=== PATIENT | male | born 1970 | race African-American/Black ===

== ENCOUNTER 2018-03-25 01:02 | Emergency (ER) | payer BC ==
[~2018-03-25] VITALS: Ht 177.8 cm; Wt 89.8 kg
--- NOTE | ~2018-03-25 | EKG ---
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1970 Requested By: Charly Crespo Order Number: [id number] MD: Manuel Thomas Measurements Intervals [place] Rate: 70 P: 47 IN: 141 QRS: -3 QRSD: 86 T: -14 QT: 375 QTc: 405 Interpretive Statements Sinus rhythm Repolarization abnormality Nonspecific T abnormalities, inferior leads No previous ECG available for comparison Electronically Signed On 03-25-2018 8:55:54 [employer] by Manuel Thomas [email or web address] <ELECTRONICALLY SIGNED> By: Manuel Thomas MD, [facility] 03/25/18 [id number] Manuel Thomas MD, FACC /EPI
[~2018-03-25 01:02] MED LIST: BACTRIM DS TAB1 EACH PO; IBUPROFEN 600600 M1 PO
[2018-03-25] MEDS ORDERED: ACETAMINOPHEN-1 EAC1 PO (01:24)
[2018-03-25] MEDS ORDERED: NORFLEX100 MG PO (01:57)
[2018-03-25] MEDS ORDERED: AMOXICILLIN 50500 M1 PO (01:57)
[2018-03-25] MEDS ORDERED: NAPROSYN500 MG PO (01:57)
[2018-03-25] MEDS ORDERED: TRAMADOL 50 MG50 MG PO (01:57)
[2018-03-25 02:28] VITALS: BP 159/109
== END 2018-03-25 02:30 | disposition home or self-care (01) ==
LOC: ER 01:02
DX: M43.6 Torticollis (principal); K02.9 Dental caries, unspecified; M26.623 Arthralgia of bilateral temporomandibular joint; M75.101 Unspecified rotator cuff tear or rupture of right shoulder, not specified as traumatic; I10 Essential (primary) hypertension

== ENCOUNTER 2018-07-25 08:39 | Emergency (ER) | payer BC ==
[~2018-07-25] VITALS: Ht 177.8 cm; Wt 88.5 kg
[~2018-07-25 08:39] MED LIST changes: +ACETAMINOPHEN-1 EAC1 PO; +AMOXICILLIN 50500 M1 PO; +NAPROSYN500 MG PO; +NORFLEX100 MG PO; +TRAMADOL 50 MG50 MG PO
[2018-07-25 09:55] LABS: ABSOLUTE NEUTROPHILS 3.6 thou/uL (1.4-8.2); BASOPHILS 0.7 % (0.0-2.0); EOSINOPHILS 2.1 % (0.0-3.0); HEMATOCRIT 44.8 % (42.0-52.0); HEMOGLOBIN 15.1 gm/dL (14.0-18.0); LYMPHOCYTES 38.1 % (24.0-44.0); MCH 28.1 pg (26.0-34.0); MCHC 33.6 g/dL (28.0-37.0); MCV 83.5 fL (80.0-100.0); PLATELET COUNT 298 thou/uL (150-400); POLYS 53.1 % (36.0-66.0); RBC 5.37 mil/uL (4.50-6.00); RDW 13.7 % (10.5-14.5); WBC 6.7 thou/uL (4.0-11.0)
[2018-07-25 10:03] LABS: ANION GAP 9 mmol/L (7-16); BUN 19 mg/dL (7-18); CALCIUM 9.9 mg/dL (8.5-10.1); CHLORIDE 102 mmol/L (98-107); CO2 30 mmol/L (21-32); CREATININE 1.3 mg/dL (0.7-1.3); GLUCOSE 116 mg/dL (74-106); POTASSIUM 4.1 mmol/L (3.5-5.1); SODIUM 141 mmol/L (136-145)
[2018-07-25 10:12] LABS: ALBUMIN 4.1 g/dL (3.4-5.0); LIPASE 88 U/L (73-393); SGOT 18 U/L (15-37); SGPT 30 U/L (30-65); TOTAL BILIRUBIN 0.4 mg/dL (<0.1-1.0); TOTAL PROTEIN 8.2 g/dL (6.4-8.2); TROPONIN-I <0.06 ng/mL (<0.06)
[2018-07-25] MEDS ORDERED: PROTONIX 20 MG20 MG PO (12:39)
[2018-07-25 13:14] VITALS: BP 138/94
--- NOTE | 2018-07-25 17:18 | EKG ---
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[facility] : 1970 Requested By: Linda Levine Order Number: [id number] MD: Manuel Thomas Measurements Intervals [place] Rate: 61 P: 44 FL: 148 QRS: -7 QRSD: 85 T: -19 QT: 402 QTc: 405 Interpretive Statements Sinus rhythm Poor R wave progression T-wave abnormality, inferior leads Compared to ECG 03/25/2018 01:13:33 No significant change was found Electronically Signed On 07-25-2018 17:17:57 CDT by Manuel Thomas [email or web address] ��������������������������������������������� <ELECTRONICALLY SIGNED> ���������������������������������������� By: Manuel Thomas MD, [facility] ��������������������������������������������� 07/25/18 1717 [id number] Manuel Thomas MD, [facility] /EPI
== END 2018-07-25 12:50 | disposition home or self-care (01) ==
LOC: ER 08:39
PROVIDERS: Student in an Organized Health Care Education/Training Program
DX: K21.9 Gastro-esophageal reflux disease without esophagitis (principal); I10 Essential (primary) hypertension